=== PATIENT | male | born 1960 | race Caucasian/White ===

== ENCOUNTER 2022-04-03 13:45 | Outpatient (CLI) | payer BC, SELFPAY ==
[2022-04-03 12:53] LABS: Albumin* 4.1 g/dL (3.3-5.0); Chloride* 103 mmol/L (96-114)
[2022-04-03 12:54] LABS: Sodium* 140 mmol/L (135-149)
[2022-04-03 12:56] LABS: Bilirubin Total* 0.5 mg/dL (0.1-1.5); Blood Urea Nitrogen* 18 mg/dL (7-30); Carbon Dioxide* 33 mmol/L (20-32); Cholesterol* 209 mg/dL (90-199); Estimated Glomerular Filt Rate 85 ml/min
[2022-04-03 12:57] LABS: Alanine Aminotransferase* 27 U/L (4-50); Alkaline Phosphatase* 74 U/L (40-150); Aspartate Amino Transferase* 30 U/L (12-35); Calcium* 8.7 mg/dL (8.4-10.6); Glucose* 97 mg/dL (60-115); HDL Cholesterol* 47 mg/dL (>=40); LDL Cholesterol Calculated 143 mg/dL (<100); Triglycerides* 97 mg/dL (40-149)
[2022-04-03 15:08] LABS: PSA Screen* 1.99 ng/mL (0.10-4.00)
== END 2022-04-03 13:46 | disposition home or self-care (01) ==
PROVIDERS: PCP Physician Assistant Medical; Visit Provider Physician Assistant Medical
DX: E78.5 Hyperlipidemia, unspecified (principal); I10 Essential (primary) hypertension; Z12.5 Encounter for screening for malignant neoplasm of prostate
CPT/HCPCS: 80053; 80061; 84153

== ENCOUNTER 2022-07-08 07:01 | Outpatient (CLI) | payer BC, SELFPAY ==
--- NOTE | 2022-07-08 07:15 | CRLHL7_ITS ---
For Patients: As a result of the Century Cures Act, medical imaging exams and procedure reports are released immediately into your electronic medical record. You may view this report before your referring provider. If you have questions, please contact your health care provider. Indication: Unresponsive episodes. Slurring speech. Technique: Noncontrast sagittal T1, axial FLAIR, T2, diffusion weighted sequences are provided. No comparisons. Findings: The ventricles, sulci and gyri are normal size, shape and contour for age. The midline structures are centrally located with no evidence of shift. There are no suspicious intra or extra-axial fluid collections. No region of restricted diffusion. Expected flow voids in the cavernous carotids and basilar artery. Minimal scattered foci of increased T2 signal within the supratentorial white matter that are non-specific. Impression: 1. No radiographic evidence of acute intracranial abnormalities. 2. Minimal supratentorial white matter change that is nonspecific but in a patient of this age statistically most likely related to chronic small vessel ischemic change. Dictated by Abdon Blanchard MD @ 07/08/2022 10:17:32 AM (Electronically Signed)
== END 2022-07-08 07:02 | disposition home or self-care (01) ==
LOC: MRI 07:02
PROVIDERS: PCP Physician Assistant Medical; Visit Provider Family Medicine
DX: R47.81 Slurred speech (principal); R41.82 Altered mental status, unspecified; R29.90 Unspecified symptoms and signs involving the nervous system
CPT/HCPCS: 70551

== ENCOUNTER 2022-10-19 10:45 | Outpatient (CLI) | payer OTHER, SELFPAY | END 2022-10-19 10:46 | disposition home or self-care (01) | LOC: NFLDREF 10-22 07:35 | PROVIDERS: PCP Physician Assistant Medical; Referring Provider Physician Assistant Medical; Visit Provider Physician Assistant Medical | DX: Z51.81 Encounter for therapeutic drug level monitoring (principal); Z79.01 Long term (current) use of anticoagulants | CPT/HCPCS: 85610 ==

== ENCOUNTER 2023-04-30 10:47 | Outpatient (CLI) | payer OTHER, SELFPAY | END 2023-04-30 10:48 | disposition home or self-care (01) | LOC: NFLDREF 05-03 05:35 | PROVIDERS: PCP Physician Assistant Medical; Referring Provider Physician Assistant Medical; Visit Provider Physician Assistant Medical | DX: Z51.81 Encounter for therapeutic drug level monitoring (principal); Z79.01 Long term (current) use of anticoagulants | CPT/HCPCS: 85610 ==

== ENCOUNTER 2023-07-08 09:36 | Outpatient (CLI) | payer OTHER, SELFPAY | END 2023-07-08 09:37 | disposition home or self-care (01) | LOC: NFLDREF 07-12 08:26 | PROVIDERS: PCP Physician Assistant Medical; Referring Provider Physician Assistant Medical; Visit Provider Physician Assistant Medical | DX: Z51.81 Encounter for therapeutic drug level monitoring (principal); Z79.01 Long term (current) use of anticoagulants | CPT/HCPCS: 85610 ==

== ENCOUNTER 2023-07-13 10:00 | Outpatient (CLI) | payer OTHER, SELFPAY | END 2023-07-13 10:01 | disposition home or self-care (01) | LOC: NFLDREF 07-14 06:00 | PROVIDERS: PCP Physician Assistant Medical; Referring Provider Physician Assistant Medical; Visit Provider Physician Assistant Medical | DX: I10 Essential (primary) hypertension (principal); E78.5 Hyperlipidemia, unspecified; Z12.5 Encounter for screening for malignant neoplasm of prostate | CPT/HCPCS: 80053; 80061; 84443; G0103 ==

== ENCOUNTER 2023-12-29 11:30 | Outpatient (CLI) | payer BC, SELFPAY | END 2023-12-29 11:31 | disposition home or self-care (01) | LOC: NFLDREF 12-31 12:51 | PROVIDERS: PCP Physician Assistant Medical; Referring Provider Physician Assistant Medical; Visit Provider Physician Assistant Medical | DX: Z51.81 Encounter for therapeutic drug level monitoring (principal); Z79.01 Long term (current) use of anticoagulants | CPT/HCPCS: 85610 ==

== ENCOUNTER 2024-01-26 11:00 | Outpatient (CLI) | payer BC, SELFPAY | END 2024-01-26 11:01 | disposition home or self-care (01) | LOC: NFLDREF 01-27 11:16 | PROVIDERS: PCP Physician Assistant Medical; Referring Provider Physician Assistant Medical; Visit Provider Physician Assistant Medical | DX: Z79.01 Long term (current) use of anticoagulants (principal); Z86.718 Personal history of other venous thrombosis and embolism | CPT/HCPCS: 85610 ==

== ENCOUNTER 2024-02-09 08:58 | Outpatient (CLI) | payer BC, SELFPAY | END 2024-02-09 08:59 | disposition home or self-care (01) | LOC: NFLDREF 02-13 02:08 | PROVIDERS: PCP Physician Assistant Medical; Referring Provider Physician Assistant Medical; Visit Provider Physician Assistant Medical | DX: Z51.81 Encounter for therapeutic drug level monitoring (principal); Z79.01 Long term (current) use of anticoagulants | CPT/HCPCS: 85610 ==

== ENCOUNTER 2024-04-12 07:56 | Outpatient (CLI) | payer MEDICARE, SELFPAY | END 2024-04-12 07:57 | disposition home or self-care (01) | LOC: NFLDREF 04-20 22:39 | PROVIDERS: PCP Physician Assistant Medical; Referring Provider Physician Assistant Medical; Visit Provider Physician Assistant Medical | DX: Z51.81 Encounter for therapeutic drug level monitoring (principal); Z79.01 Long term (current) use of anticoagulants | CPT/HCPCS: 85610 ==

== ENCOUNTER 2024-07-05 07:22 | Outpatient (CLI) | payer MEDICARE, SELFPAY | END 2024-07-05 07:23 | disposition home or self-care (01) | LOC: NFLDREF 07-07 17:40 | PROVIDERS: PCP Physician Assistant Medical; Referring Provider Physician Assistant Medical; Visit Provider Physician Assistant Medical | DX: Z51.81 Encounter for therapeutic drug level monitoring (principal); Z79.01 Long term (current) use of anticoagulants; Z86.718 Personal history of other venous thrombosis and embolism | CPT/HCPCS: 85610 ==

== ENCOUNTER 2024-10-03 07:30 | Outpatient (CLI) | payer MEDICARE, SELFPAY | END 2024-10-03 07:31 | disposition home or self-care (01) | LOC: NFLDREF 10-04 15:33 | PROVIDERS: PCP Physician Assistant Medical; Referring Provider Physician Assistant Medical; Visit Provider Physician Assistant Medical | DX: Z79.01 Long term (current) use of anticoagulants (principal); Z86.718 Personal history of other venous thrombosis and embolism | CPT/HCPCS: 85610 ==

== ENCOUNTER 2024-10-17 08:10 | Outpatient (CLI) | payer MEDICARE, SELFPAY | END 2024-10-17 08:11 | disposition home or self-care (01) | PROVIDERS: PCP Physician Assistant Medical; Referring Provider Physician Assistant Medical; Visit Provider Physician Assistant Medical | DX: I10 Essential (primary) hypertension (principal); E78.2 Mixed hyperlipidemia; Z51.81 Encounter for therapeutic drug level monitoring; Z79.01 Long term (current) use of anticoagulants; Z12.5 Encounter for screening for malignant neoplasm of prostate | CPT/HCPCS: 80053; 80061; 84443; 85610; G0103 ==

== ENCOUNTER 2025-01-09 07:30 | Outpatient (CLI) | payer MEDICARE, SELFPAY | END 2025-01-09 07:31 | disposition home or self-care (01) | LOC: NFLDREF 01-12 09:25 | PROVIDERS: PCP Physician Assistant Medical; Referring Provider Physician Assistant Medical; Visit Provider Physician Assistant Medical | DX: G89.29 Other chronic pain (principal); M54.50 Low back pain, unspecified; Z79.01 Long term (current) use of anticoagulants | CPT/HCPCS: 85610 ==

== ENCOUNTER 2025-02-06 07:34 | Outpatient (CLI) | payer MEDICARE, SELFPAY | END 2025-02-06 07:35 | disposition home or self-care (01) | LOC: NFLDREF 02-10 16:20 | PROVIDERS: PCP Physician Assistant Medical; Referring Provider Physician Assistant Medical; Visit Provider Physician Assistant Medical | DX: Z51.81 Encounter for therapeutic drug level monitoring (principal); Z79.01 Long term (current) use of anticoagulants | CPT/HCPCS: 85610 ==